=== PATIENT | female | born 1990 | race Caucasian/White ===

== ENCOUNTER 2019-08-26 19:12 | Emergency (ER) | payer OTHER ==
[~2019-08-26] VITALS: Ht 152.4 cm; Wt 54.4 kg
[~2019-08-26 19:12] MED LIST: ABILIFY10 MG; CLONAZEPAM 0.50.5 M1; HYDROCODONE-AP1 EAC6 PO; IBUPROFEN 800800 M1 PO; IBUPROFEN 800800 MG PO; PENICILLIN V P500 MG PO; PENICILLIN VK250 MG PO; TRAZODONE 150150 M1; VICODIN 5-5001 EACH PO; VICODIN ES 7.51 EACH; XANAX 0.5 MG0.5 M1
[2019-08-26] MEDS ORDERED: LIDOCAINE VISC100 ML SWISH&SPIT (20:50)
[2019-08-26] MEDS ORDERED: TYLENOL WITH CO1 TA1 PO (20:50)
[2019-08-26] MEDS ORDERED: AMOXICILLIN 50500 MG PO (20:50)
[2019-08-26 20:59] VITALS: BP 155/89
== END 2019-08-26 21:00 | disposition home or self-care (01) ==
LOC: M.ERS 19:12
DX: K04.7 Periapical abscess without sinus (principal); R23.4 Changes in skin texture; F17.210 Nicotine dependence, cigarettes, uncomplicated